=== PATIENT | female | born 1955 | race Caucasian/White ===

== ENCOUNTER 2024-12-14 20:52 | Inpatient (IN) | payer MEDICARE, BC ==
[~2024-12-14] VITALS: Ht 167.6 cm; Wt 90.7 kg
[2024-12-14] MEDS ORDERED: EPINEPHRINE (1:1000) 1 MG/ML AMPUL ONE (21:15)
[2024-12-14] MEDS ORDERED: FAMOTIDINE/PF INJ 20 MG/2 ML VIAL IV ONE (21:15)
[2024-12-14] MEDS ORDERED: diphenhydrAMINE HCL 50 MG/ML VIAL ONE (21:15)
[2024-12-14] MEDS ORDERED: methylPREDNISolone SOD SUCC 40 MG/ML VIAL ONE (21:16)
[2024-12-14] MEDS: FAMOTIDINE/PF INJ 20 MG/2 ML VIAL IV ONE (21:18)
[2024-12-14] MEDS: EPINEPHRINE (1:1000) 1 MG/ML AMPUL SUBCUT ONE (21:18)
[2024-12-14] MEDS: IV NS 0.9% 1,000 ML BAG IV ONE (21:18)
[2024-12-14] MEDS: diphenhydrAMINE HCL 50 MG/ML VIAL IV ONE (21:18)
[2024-12-14] MEDS: methylPREDNISolone SOD SUCC 125 MG/2ML VIAL IV ONE (21:19)
[2024-12-14] MEDS ORDERED: diphenhydrAMINE HCL 50 MG/ML VIAL IV ONE (21:30)
[2024-12-14 21:33] LABS: BASOPHILS % (AUTO) 0.3 % (0.0-2.0); EOSINOPHILS # (AUTO) 0.1 K/uL (0.0-0.7); EOSINOPHILS % (AUTO) 0.8 % (0.0-6.0); HEMATOCRIT 46 % (33-45); HEMOGLOBIN 15.4 g/dL (11.5-14.8); LYMPHOCYTES # (AUTO) 4.9 K/uL (0.8-4.8); LYMPHOCYTES % (AUTO) 42.1 % (20.0-44.0); MEAN CORPUSCULAR HEMOGLOBIN 28 PG (26.0-33.0); MEAN CORPUSCULAR HGB CONC 33 g/dl (31.0-36.0); MEAN CORPUSCULAR VOLUME 84 fL (82-100); MONOCYTES # (AUTO) 0.7 K/uL (0.1-1.30); NEUTROPHILS # (AUTO) 5.9 K/uL (1.8-8.9); NEUTROPHILS % (AUTO) 50.8 % (43.0-81.0); PLATELET COUNT (AUTO) 290 K/uL (150-450); RED CELL DISTRIBUTION WIDTH 13.7 % (11.5-15.0); WHITE BLOOD COUNT (AUTO) 11.6 K/uL (4.3-11.0)
[2024-12-14 21:41] LABS: CALCIUM, SERUM 9.3 mg/dL (8.5-10.1); CARBON DIOXIDE 19 mmol/L (21-32); CHLORIDE 103 mmol/L (98-107); CREATININE 1.5 mg/dL (0.6-1.3); GLUCOSE 174 mg/dL (74-106); POTASSIUM 3.6 mmol/L (3.5-5.1); SODIUM SERUM 134 mmol/L (136-145); UREA NITROGEN, BLOOD 26 mg/dL (7-18)
[2024-12-15 00:38] LABS: APPEARANCE,URINE SLIGHTLY CLOUDY (CLEAR); BILIRUBIN,URINE NEGATIVE (NEGATIVE); BLOOD, URINE NEGATIVE Ery/uL (NEGATIVE); COLOR,URINE YELLOW (YELLOW); KETONES,URINE 1+ mg/dL (NEGATIVE); LEUKOCYTE ESTERASE ,URINE NEGATIVE (NEGATIVE); NITRITE, URINE NEGATIVE (NEGATIVE); PROTEIN,URINE 2+ mg/dl (NEGATIVE); UGLUCOSE NEGATIVE (NEGATIVE); UROBILINOGEN,URINE 0.2 EU/dL (0.2)
[2024-12-15] MEDS ORDERED: MAG HYDROX/AL HYDROX/SIMETH 30 ML UDC PO PRN (01:00)
[2024-12-15] MEDS ORDERED: Z GUARD REMEDY 4 OZ OINT TP PRN (01:00)
[2024-12-15] MEDS ORDERED: MAGNESIUM HYDROXIDE 30 ML UDC PO PRN (01:00)
[2024-12-15] MEDS: diphenhydrAMINE HCL 25 MG CAPSULE PO SCH (01:00)
[2024-12-15] MEDS ORDERED: ZOLPIDEM TARTRATE 5 MG TABLET PO PRN (01:00)
[2024-12-15] MEDS ORDERED: ONDANSETRON HCL/PF 4 MG/2 ML VIAL IVP PRN (01:00)
[2024-12-15] MEDS ORDERED: ACETAMINOPHEN 325 MG TABLET PO PRN (01:00)
[2024-12-15 01:02] LABS: RBC,URINE 0-2 /HPF (0-2)
[2024-12-15 01:03] LABS: ADD URINE CULTURE YES; BACTERIA,URINE 1+ /HPF (None Seen); CALCIUM OXALATE CRYSTALS,UR Moderate /HPF (None Seen); URINE AMORPHOUS URATE Moderate /HPF (None Seen); WBC,URINE 0-2 /HPF (0-3)
[2024-12-15 01:04] LABS: FINE GRANULAR CASTS,URINE Few /LPF (None Seen); HYALINE CASTS, URINE Few /LPF (None Seen); MUCUS,URINE Moderate /LPF (None Seen)
[2024-12-15] MEDS: IV 1/2NS 1000 ML 1,000 ML IV PRN (02:01)
[2024-12-15 04:00] VITALS: BP 121/67; TEMP 98.4; O2SAT 96
[2024-12-15] MEDS: methylPREDNISolone SOD SUCC 40 MG/ML VIAL IV SCH (04:35)
[2024-12-15] MEDS: FAMOTIDINE/PF INJ 20 MG/2 ML VIAL IV SCH (08:17)
[2024-12-15 11:16] LABS: BASOPHILS % (AUTO) 0.3 % (0.0-2.0); HEMATOCRIT 43 % (33-45); HEMOGLOBIN 14.6 g/dL (11.5-14.8); LYMPHOCYTES # (AUTO) 0.6 K/uL (0.8-4.8); LYMPHOCYTES % (AUTO) 13.5 % (20.0-44.0); MEAN CORPUSCULAR HEMOGLOBIN 28 PG (26.0-33.0); MEAN CORPUSCULAR HGB CONC 34 g/dl (31.0-36.0); MEAN CORPUSCULAR VOLUME 85 fL (82-100); MONOCYTES # (AUTO) 0.2 K/uL (0.1-1.30); MONOCYTES % (AUTO) 3.4 % (2.0-12.0); NEUTROPHILS # (AUTO) 3.8 K/uL (1.8-8.9); NEUTROPHILS % (AUTO) 82.8 % (43.0-81.0); PLATELET COUNT (AUTO) 240 K/uL (150-450); RED BLOOD CELL COUNT(AUTO) 5.14 MIL/uL (4.0-5.2); RED CELL DISTRIBUTION WIDTH 13.5 % (11.5-15.0); WHITE BLOOD COUNT (AUTO) 4.6 K/uL (4.3-11.0)
[2024-12-15 11:31] LABS: ALBUMIN 3.5 g/dL (3.4-5.0); BILIRUBIN,TOTAL 0.4 mg/dL (0.2-1.0); CALCIUM, SERUM 9.4 mg/dL (8.5-10.1); CREATININE 1.1 mg/dL (0.6-1.3); MAGNESIUM 2.2 mg/dL (1.8-2.4); POTASSIUM 4.2 mmol/L (3.5-5.1); TOTAL PROTEIN, SERUM 7.5 g/dL (6.4-8.2)
[2024-12-15] MEDS ORDERED: EPIN0.1519 IM (11:36)
[2024-12-15] MEDS ORDERED: FAMO40TA7 PO (11:36)
[2024-12-15] MEDS ORDERED: DIPH25TA62 PO (11:36)
== END 2024-12-15 13:34 | disposition home or self-care (01) | DRG 915 ==
LOC: ER 20:55 → TELE 12-15 01:43
PROVIDERS: ADMIT Nurse Practitioner Acute Care; ATTEND Nurse Practitioner Acute Care
DX: T78.09XA Anaphylactic reaction due to other food products, initial encounter (principal); N17.0 Acute kidney failure with tubular necrosis; E87.1 Hypo-osmolality and hyponatremia; R55 Syncope and collapse; D72.829 Elevated white blood cell count, unspecified; E66.9 Obesity, unspecified; E86.9 Volume depletion, unspecified; M89.8X9 Other specified disorders of bone, unspecified site; E83.9 Disorder of mineral metabolism, unspecified; Z68.32 Body mass index [BMI] 32.0-32.9, adult; R09.02 Hypoxemia
CPT/HCPCS: 36415; 80048-TC; 80053-TC; 81001; 83735-TC; 84100-TC; 84484-TC; 85025-TC; 87086-TC; G0378; J0171; J1200; J1308; J2919; Q0163

== ENCOUNTER 2025-01-31 11:12 | Emergency (ER) | payer MEDICARE, BC ==
[~2025-01-31] VITALS: Ht 167.6 cm; Wt 94.3 kg
[~2025-01-31 11:12] MED LIST: DIPH25TA62 PO; EPIN0.1519 IM; FAMO40TA7 PO
[2025-01-31 11:23] VITALS: TEMP 98.3
[2025-01-31 12:12] VITALS: BP 121/52
[2025-01-31 12:18] VITALS: O2SAT 95
== END 2025-01-31 12:19 | disposition home or self-care (01) ==
LOC: ER 11:21
DX: R20.2 Paresthesia of skin (principal); T78.1XXA Other adverse food reactions, not elsewhere classified, initial encounter; Z88.5 Allergy status to narcotic agent; Z88.6 Allergy status to analgesic agent; Z79.899 Other long term (current) drug therapy; Z91.018 Allergy to other foods; X58.XXXA Exposure to other specified factors, initial encounter